=== PATIENT | male | born 1945 | race Caucasian/White ===

== ENCOUNTER 2020-03-08 00:07 | Inpatient (IN) | payer OTHER, SELFPAY ==
[~2020-03-08] VITALS: Ht 182.9 cm; Wt 88.5 kg
[2020-03-08 00:07] VITALS: BP_SYST 164
[~2020-03-08 00:07] MED LIST: DILT120C89 PO; FOLI-43 PO; HYDR-3607 PO; LISI-221 PO; METO-442 PO; MULT-1164 PO; TRAZ-250 PO; WARF2.5T2 PO; WARF5TAB2 PO
[2020-03-08 00:59] LABS: EOSINOPHILS # (AUTO) 0.1 K/uL (0.0-0.4); RED CELL DISTRIBUTION WIDTH 15.6 % (9.0-15.0)
[2020-03-08 01:02] LABS: ANION GAP 8 (5-15); CALCIUM 8.7 mg/dL (8.4-11.0); CHLORIDE 103 mmol/L (98-107); CREATININE 1.22 mg/dL (0.55-1.30); GLUCOSE 116 mg/dL (70-99); POTASSIUM 4.6 mmol/L (3.5-5.1); SODIUM SERUM 141 mmol/L (136-145); UREA NITROGEN, BLOOD 18 mg/dL (8-21)
[2020-03-08 01:08] LABS: BASOPHILS % (AUTO) 0.2 % (0.0-2.0); HEMATOCRIT 36.1 % (36-54); HEMOGLOBIN 11.5 g/dL (14.0-18.0); LYMPHOCYTES # (AUTO) 1.3 K/uL (1.0-5.5); LYMPHOCYTES % (AUTO) 12.6 % (20.5-51.5); MEAN CORPUSCULAR HEMOGLOBIN 27 pg (27-31); MEAN CORPUSCULAR HGB CONC 32 % (32-36); MEAN CORPUSCULAR VOLUME 85 fL (79.0-98.0); MONOCYTES % (AUTO) 9.6 % (1.7-9.3); NEUTROPHILS # (AUTO) 7.8 K/uL (1.8-7.7); NEUTROPHILS % (AUTO) 76.6 % (40.0-70.0); PLATELET COUNT (AUTO) 396 K/uL (130-430); RED BLOOD CELL COUNT(AUTO) 4.24 MIL/uL (4.2-6.2); WHITE BLOOD COUNT (AUTO) 10.2 K/uL (4.8-10.8)
[2020-03-08 01:09] LABS: ALANINE AMINOTRANSFERASE 29 U/L (12-78); ALBUMIN 3.4 g/dL (3.4-4.8); ASPARTATE AMINOTRANSFERASE 23 U/L (10-37); TOTAL BILIRUBIN 0.4 mg/dL (0.0-1.0)
[2020-03-08] MEDS ORDERED: cefTRIAXone 1 GM in D5W 50 ML IV ONE (02:15)
[2020-03-08] MEDS ORDERED: VANCOMYCIN HCL 1,000 MG in NS 250 ML IV ONE (02:15)
[2020-03-08] MEDS ORDERED: IOHEXOL 350 mgI/mL, 150 ML INFUS..BTL IV ONE (02:23)
[2020-03-08] MEDS ORDERED: VANCOMYCIN HCL 1000 MG/VIAL IV ONE (02:28)
[2020-03-08] MEDS ORDERED: cefTRIAXone 1 GM VIAL ONE (02:28)
[2020-03-08] MEDS ORDERED: IPRA4AER INH (03:17)
[2020-03-08] MEDS ORDERED: GABA-529 PO (03:17)
[2020-03-08] MEDS ORDERED: DIPHENHYDRAMINE HCL 25 MG CAPSULE PO ONE (03:45)
[2020-03-08] MEDS ORDERED: DIPHENHYDRAMINE INJ 50 MG/ML VIAL IVP ONE (03:45)
[2020-03-08] MEDS ORDERED: DIPHENHYDRAMINE INJ 50 MG/ML VIAL ONE (03:59)
[2020-03-08 05:04] VITALS: BP_SYST 170
[2020-03-08] MEDS ORDERED: ALBUTEROL MDI INHALATION 8 GM INH INH PRN (06:00)
[2020-03-08] MEDS ORDERED: AZITHROMYCIN 500 MG in NS 250 ML IV SCH (06:00)
[2020-03-08] MEDS ORDERED: IPRATROPIUM/ALBUTEROL SULFATE 120 PUFFS/4 GM INH INH SCH (06:00)
[2020-03-08] MEDS ORDERED: ACETAMINOPHEN 325 MG TABLET PO PRN (06:00)
[2020-03-08] MEDS ORDERED: ONDANSETRON HCL 4 MG/2 ML VIAL IVP PRN (06:00)
[2020-03-08] MEDS ORDERED: MORPHINE 2 MG/ML INJ. SYRINGE IVP PRN (06:00)
[2020-03-08] MEDS ORDERED: DIPHENHYDRAMINE HCL 50 MG CAPSULE PO PRN (06:15)
[2020-03-08 08:00] VITALS: BP_SYST 177
[2020-03-08] MEDS: PIPERACILLIN/TAZO 3.375/DEX-IS 50 ML IV SCH ×3 (08:00→17:45)
[2020-03-08] MEDS ORDERED: GABAPENTIN 100 MG CAPSULE PO SCH (09:00)
[2020-03-08] MEDS: METOPROLOL TARTRATE 50 MG TABLET PO SCH ×2 (09:02→20:21)
[2020-03-08] MEDS: AZITHROMYCIN 500 MG in NS 250 ML IV SCH (09:02)
[2020-03-08] MEDS: DILTIAZEM HCL 120 MG CAP.SR.24H PO SCH (09:03)
[2020-03-08] MEDS: LISINOPRIL 20 MG TABLET PO SCH (09:03)
[2020-03-08 09:40] LABS: BASOPHILS % (AUTO) 0.2 % (0.0-2.0); HEMATOCRIT 35.1 % (36-54); LYMPHOCYTES # (AUTO) 0.5 K/uL (1.0-5.5); LYMPHOCYTES % (AUTO) 4.8 % (20.5-51.5); MEAN CORPUSCULAR HEMOGLOBIN 27 pg (27-31); MEAN CORPUSCULAR HGB CONC 31 % (32-36); MEAN CORPUSCULAR VOLUME 86 fL (79.0-98.0); MONOCYTES # (AUTO) 0.8 K/uL (0.0-1.0); MONOCYTES % (AUTO) 7.6 % (1.7-9.3); NEUTROPHILS # (AUTO) 9.1 K/uL (1.8-7.7); NEUTROPHILS % (AUTO) 87.4 % (40.0-70.0); PLATELET COUNT (AUTO) 349 K/uL (130-430); RED BLOOD CELL COUNT(AUTO) 4.09 MIL/uL (4.2-6.2); RED CELL DISTRIBUTION WIDTH 15.4 % (9.0-15.0); WHITE BLOOD COUNT (AUTO) 10.4 K/uL (4.8-10.8)
[2020-03-08 09:52] LABS: INR 2.1 (0.80-1.20); PROTHROMBIN TIME 20.4 SECS (9.5-12.5)
[2020-03-08 09:58] LABS: ALANINE AMINOTRANSFERASE 28 U/L (12-78); ALBUMIN 3.3 g/dL (3.4-4.8); ANION GAP 6 (5-15); ASPARTATE AMINOTRANSFERASE 25 U/L (10-37); CALCIUM 8.8 mg/dL (8.4-11.0); CHLORIDE 102 mmol/L (98-107); CREATININE 1.12 mg/dL (0.55-1.30); GLUCOSE 123 mg/dL (70-99); POTASSIUM 5.4 mmol/L (3.5-5.1); SODIUM SERUM 139 mmol/L (136-145); TOTAL BILIRUBIN 0.5 mg/dL (0.0-1.0); UREA NITROGEN, BLOOD 17 mg/dL (8-21)
[2020-03-08 12:00] VITALS: BP_SYST 149
[2020-03-08 16:00] VITALS: BP_SYST 147
[2020-03-08] MEDS ORDERED: WARFARIN SODIUM 2.5 MG TABLET PO SCH (18:00)
[2020-03-08 20:08] VITALS: BP_SYST 155
[2020-03-08] MEDS ORDERED: traZODone HCL 50 MG TABLET (DESYREL) PO SCH (21:00)
[2020-03-09] VITALS: BP_SYST 136
[2020-03-09] MEDS: PIPERACILLIN/TAZO 3.375/DEX-IS 50 ML IV SCH ×3 (00:04→11:49)
[2020-03-09 07:12] LABS: BASOPHILS % (AUTO) 0.1 % (0.0-2.0); HEMATOCRIT 33.9 % (36-54); HEMOGLOBIN 10.8 g/dL (14.0-18.0); LYMPHOCYTES # (AUTO) 0.4 K/uL (1.0-5.5); MEAN CORPUSCULAR HEMOGLOBIN 27 pg (27-31); MEAN CORPUSCULAR HGB CONC 32 % (32-36); MEAN CORPUSCULAR VOLUME 85 fL (79.0-98.0); MONOCYTES # (AUTO) 0.6 K/uL (0.0-1.0); MONOCYTES % (AUTO) 5.5 % (1.7-9.3); NEUTROPHILS # (AUTO) 9.9 K/uL (1.8-7.7); NEUTROPHILS % (AUTO) 90.4 % (40.0-70.0); PLATELET COUNT (AUTO) 367 K/uL (130-430); RED BLOOD CELL COUNT(AUTO) 4.01 MIL/uL (4.2-6.2)
[2020-03-09 07:19] LABS: INR 2.4 (0.80-1.20); PROTHROMBIN TIME 23.4 SECS (9.5-12.5)
[2020-03-09 07:25] LABS: ALANINE AMINOTRANSFERASE 28 U/L (12-78); ALBUMIN 3.3 g/dL (3.4-4.8); ANION GAP 7 (5-15); ASPARTATE AMINOTRANSFERASE 21 U/L (10-37); CALCIUM 8.7 mg/dL (8.4-11.0); CHLORIDE 97 mmol/L (98-107); CREATININE 1.04 mg/dL (0.55-1.30); GLUCOSE 161 mg/dL (70-99); POTASSIUM 4.4 mmol/L (3.5-5.1); SODIUM SERUM 132 mmol/L (136-145); TOTAL BILIRUBIN 0.7 mg/dL (0.0-1.0); UREA NITROGEN, BLOOD 24 mg/dL (8-21)
[2020-03-09 08:00] VITALS: BP_SYST 155
[2020-03-09] MEDS: AZITHROMYCIN 500 MG in NS 250 ML IV SCH (08:24)
[2020-03-09] MEDS: LISINOPRIL 20 MG TABLET PO SCH (08:25)
[2020-03-09] MEDS: DILTIAZEM HCL 120 MG CAP.SR.24H PO SCH (08:25)
[2020-03-09] MEDS: METOPROLOL TARTRATE 50 MG TABLET PO SCH (08:25)
[2020-03-09] MEDS ORDERED: cefTRIAXone 1 GM in D5W 50 ML IV SCH (12:00)
[2020-03-09 13:40] VITALS: BP_SYST 136
[2020-03-09] MEDS ORDERED: WARFARIN SODIUM 5 MG TABLET PO SCH (18:00)
[2020-03-14] MEDS ORDERED: WARFARIN SODIUM 2.5 MG TABLET PO SCH (18:00)
== END 2020-03-09 16:10 | disposition left against medical advice (07) | DRG 291 ==
LOC: SED 00:07 → STU 04:24 → EEVIPCON 04:24 → STU 04:34
PROVIDERS: ADMIT Internal Medicine Hospice and Palliative Medicine; ATTEND Internal Medicine Hospice and Palliative Medicine
DX: I11.0 Hypertensive heart disease with heart failure (principal); J96.21 Acute and chronic respiratory failure with hypoxia; J12.9 Viral pneumonia, unspecified; J44.1 Chronic obstructive pulmonary disease with (acute) exacerbation; I48.20 Chronic atrial fibrillation, unspecified; J44.0 Chronic obstructive pulmonary disease with (acute) lower respiratory infection; J91.8 Pleural effusion in other conditions classified elsewhere; I50.43 Acute on chronic combined systolic (congestive) and diastolic (congestive) heart failure; I42.9 Cardiomyopathy, unspecified; F17.200 Nicotine dependence, unspecified, uncomplicated; F43.10 Post-traumatic stress disorder, unspecified; Z20.828 Contact with and (suspected) exposure to other viral communicable diseases; I25.10 Atherosclerotic heart disease of native coronary artery without angina pectoris; Z91.14 Patient's other noncompliance with medication regimen; Z79.899 Other long term (current) drug therapy; Z71.6 Tobacco abuse counseling
CPT/HCPCS: 36415; 71045; 71250-TC; 71275; 80053; 82550-TC; 83605; 83880; 84484; 85025; 85379; 85610-TC; 86710; 87040-TC; 93005; 96365; 96366; 96367; 96375; 99285; G0378; J0456; J0696; J1200; J2543; J3370; J7030; J7050; J7060; Q9967; U0002